=== PATIENT | male | born 1975 | race American Indian/Alaskan Native ===

== ENCOUNTER 2019-08-27 09:19 | Outpatient (CLI) | payer SELFPAY ==
--- NOTE | 2019-08-27 11:25 | Fluoroscopy Report ---
BARIUM SWALLOW HISTORY: Bariatric surgery status, evaluate and adjust lap band. FINDINGS: A modified examination was performed to evaluate a lap band device. The surgeon Dr. Byrd was presen t for this evaluation. Thin barium was ingested under fluoroscopy. The esophagus appears mildly dilated. No mucosal lesion o r stenosis. Thin barium was essentially unable to pass through the lap band device and refluxed to an d fro in the distal esophagus. Dr. Byrd decided to access the port and remove fluid to loosen the l ap band. After this, there was easy passage of the contrast agent through the lap band device. There is no evidence for slippage, erosion or extravasation of contrast. The visualized stomach and small b owel loops are within normal limits. No gastroesophageal reflux was witnessed after adjusting the lap band device. IMPRESSION: Adequate positioning of the lap band device. The lap band device was adjusted by Dr. Byrd during th is examination as described. No evidence for mucosal defect or gastroesophageal reflux under fluorosc opy. Fluoroscopy time: 3.9 minutes. Fluoroscopic images: 34. Signer Name: Vicente Dillard Jr, MD Signed: 08/27/2019 11:20 AM Workstation Name: [id number]
== END 2019-08-27 09:20 | disposition home or self-care (01) ==
LOC: FLUORO 09:19
PROVIDERS: ATTEND Surgery
DX: E66.01 Morbid (severe) obesity due to excess calories (principal); Z98.84 Bariatric surgery status
CPT/HCPCS: 74220

== ENCOUNTER 2021-01-04 14:20 | Emergency (ER) | payer SELFPAY ==
--- NOTE | 2021-01-04 18:07 | Emergency Department Report ---
ED General Adult HPI - General Chief complaint: Dyspnea/Respdistress Stated complaint: TROUBLE BREATHING/NOSE BURNING/EYES BURNING Time Seen by Provider: 01/04/21 18:01 Source: patient Mode of arrival: Ambulatory Limitations: No Limitations - History of Present Illness Initial comments: 45-year-old male patient presents to emergency department with complaints of intermittent cough, nasal congestion, and watery eyes for the last few days. 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 He suspects his truck may have a gas leak. He is concerned about chemical exposure. He has no history of chronic lung disease. No medications prior to arrival. No known sick contacts. Denies fever, chills, wheezing, vomiting, headache, seizure, syncope, hemoptysis, rash. Denies other complaints at this time. - Related Data Previous Rx's Medication Instructions Recorded Last Taken Type Cetirizine HCl 10 mg PO DAILY 14 Days tablet 01/04/21 Unknown Rx Allergies Allergy/AdvReac Type Severity Reaction Status Date / Time No Known Allergies Allergy Unverified 01/04/21 14:56 ED Review of Systems ROS: Stated complaint: TROUBLE BREATHING/NOSE BURNING/EYES BURNING Other details as noted in HPI Other: GENERAL: Negative for fever, chills, weight change, anorexia, fatigue. ENT: Positive for congestion and watery eyes. CARDIOVASCULAR: Negative for chest pain, palpitations, lower extremity swelling. PULMONARY: Positive for cough. GASTROINTESTINAL: Negative for abdominal pain, nausea, vomiting, diarrhea, constipation. MUSCULOSKELETAL: Negative for joint pain, joint swelling, myalgias, back pain, neck pain. NEUROLOGICAL: Negative for headache, seizure, syncope, paresthesias, weakness. INTEGUMENTARY: Negative for erythema, rash, diaphoresis, laceration, ecchymosis. HEMATOLOGICAL: Negative for hemoptysis, hematemesis, hematochezia, hematuria. PSYCHIATRIC: Negative for hallucinations, suicidal ideation, homicidal ideation, anxiety, depression. ED Past Medical Hx - Past Medical History Previous Medical History?: No - Surgical History Past Surgical History?: No - Medications Home Medications: Home Medications Medication Instructions Recorded Confirmed Last Taken Type Cetirizine HCl 10 mg PO DAILY 14 Days tablet 01/04/21 Unknown Rx ED Physical Exam - General Limitations: No Limitations - Other Other exam information: General: Awake and alert. No acute distress. Head: Atraumatic, normocephalic. Eyes: EOMI. Pupils are equal and round. Normal sclera and conjunctiva. ENT: Clear rhinorrhea present. Oral mucosa is moist. Normal pharyngeal exam. Neck: Supple. No lymphadenopathy. Pulmonary: No respiratory distress. Clear to auscultation bilaterally. Cardiac: Regular rate and rhythm. Pulses are palpable and equal bilaterally. No lower extremity cyanosis or edema. Skin: Warm and dry. No rashes. Abdomen: Soft, non-tender, non-protuberant. No guarding, rigidity, or rebound. Bowel sounds are normal. No organomegaly or masses noted. Back: Normal alignment. No CVA tenderness. Extremities: Symmetrical. Full range of motion intact. Neurological: Alert and oriented, appropriately interactive, no focal deficits. Psych: Cooperative. Appropriate mood and affect. Speech is evenly metered. Thoughts are logically construed. ED Course Vital Signs 01/04/21 01/04/21 14:58 19:30 Temperature 98.2 F Pulse Rate 103 H 88 Respiratory 22 17 Rate Blood Pressure 170/108 Blood Pressure 151/102 [Left] O2 Sat by Pulse 97 97 Oximetry ED Medical Decision Making - Radiology Data [facility] [address] [place] [address] XRay Report Signed Patient: ANTHONY KEANE MR#: [id number] : 1975 Acct:[id number] Age/Sex: 45 / M ADM Date: 01/04/21 Loc: ED Attending Dr: Ordering Physician: ELISABETH PRIEST Date of Service: 01/04/21 Procedure(s): XR chest routine 2V Accession Number(s): [id number] cc: ELISABETH PRIEST Fluoro Time In Minutes: CHEST 2 VIEWS INDICATION / CLINICAL INFORMATION: cough; hx chemical exposure. COMPARISON: None available. FINDINGS: SUPPORT DEVICES: None. HEART / MEDIASTINUM: No significant abnormality. LUNGS / PLEURA: Linear atelectasis left lung base. No confluent infiltrates or pleural effusions. No pneumothorax. ADDITIONAL FINDINGS: No significant additional findings. IMPRESSION: 1. Linear atelectasis left lung base. 2. No confluent infiltrates or pleural effusions. Signer Name: Shadi Gay MD Signed: 01/04/2021 6:23 PM Workstation Name: [id number] Transcribed By: Dictated By: SHADI GAY Electronically Authenticated By: SHADI GAY Signed Date/Time: 01/04/211822 DD/ 21 TD/TT: - Medical Decision Making Differential diagnosis including but not limited to: chemical pneumonitis, allergic rhinitis, carbon monoxide poisoning, hydrocarbon ingestion, viral upper respiratory infection On reevaluation, patient remains stable. Tachycardia resolved without intervention. No hypoxia, no respiratory distress. Chest x-ray shows linear atelectasis along the left lung base without acute process. History and exam findings are suggestive of allergies, likely attributable to occupational e xposures. Patient will be discharged home with short course of antihistamines for symptomatic relief and referred to primary care provider for close outpatient follow-up. Since symptoms are only present when patient is at work, he was encouraged to limit his exposure to the suspected offending agents. Patient expressed understanding and is agreeable to plan of care. Strict return precautions provided. Of note, patient's blood pressure was noted to be elevated in the emergency department. He does not have a prior diagnosis of hypertension. Patient is not exhibiting any signs/symptoms of hypertensive emergency to warrant further diagnostic work-up on an emergent basis at this time, per ACEP guidelines regarding asymptomatic hypertension. Patient has been encouraged to follow-up with his primary care provider for further evaluation of his elevated blood pressure reading on an outpatient basis. Repeat exam is unremarkable and benign. History, exam, diagnostic testing, and current condition do not suggest worrisome pathology to warrant further testing, continued ED treatment, admission, or surgical evaluation at this point. Given the low probability of a significant medical illness, it would be more likely to result in harm than benefit to perform further testing at this stage. Discussed findings, presumptive diagnosis, need for follow-up and specific signs/symptoms that should prompt immediate return to the emergency department. Instructions were explained in detail to the patient in addition to giving written discharge information. Patient expressed understanding and was given the opportunity to ask questions, all of which were satisfactorily answered prior to discharge home. Critical care attestation.: If time is entered above; I have spent that time in minutes in the direct care of this critically ill patient, excluding procedure time. ED Disposition Clinical Impression: Exposure to chemical inhalation, Elevated blood pressure reading without diagnosis of hypertension Disposition: DC-01 TO HOME OR SELFCARE Is pt being admited?: No Does the pt Need Aspirin: No Condition: Stable Instructions: Chemical Inhalation Injury, Adult Additional Instructions: Take Cetirizine as directed. Limit occupational exposures, such as fumes and gasoline, which may worsen your symptoms. Follow-up with primary care provider for blood pressure recheck within 1 week. Call tomorrow to schedule an appointment. Exercise daily. Reduce your dietary sodium intake. Return to the emergency department immediately for new or worsening symptoms. Prescriptions: Cetirizine HCl 10 mg PO DAILY 14 Days tablet Referrals: KAMI MARTIN MD [Staff Physician] - 3-5 Days Time of Disposition: 18:39
--- NOTE | 2021-01-04 18:28 | XRay Report ---
CHEST 2 VIEWS INDICATION / CLINICAL INFORMATION: cough; hx chemical exposure. COMPARISON: None available. FINDINGS: SUPPORT DEVICES: None. HEART / MEDIASTINUM: No significant abnormality. LUNGS / PLEURA: Linear atelectasis left lung base. No confluent infiltrates or pleural effusions. No pneumothorax. ADDITIONAL FINDINGS: No significant additional findings. IMPRESSION: 1. Linear atelectasis left lung base. 2. No confluent infiltrates or pleural effusions. Signer Name: Shadi Martínez MD Signed: 01/04/2021 6:23 PM Workstation Name: [id number]
[2021-01-04 22:21] VITALS: BP 151/102
== END 2021-01-04 19:30 | disposition home or self-care (01) ==
LOC: ED 14:20
DX: R03.0 Elevated blood-pressure reading, without diagnosis of hypertension (principal); Z77.098 Contact with and (suspected) exposure to other hazardous, chiefly nonmedicinal, chemicals; Z79.899 Other long term (current) drug therapy
CPT/HCPCS: 71046; 99283